=== PATIENT | male | born 1950 | race Hispanic/Latino ===

== ENCOUNTER 2018-10-11 14:14 | Outpatient (CLI) | payer OTHER | END 2018-10-11 14:15 | disposition home or self-care (01) | LOC: ULT 14:14 | PROVIDERS: ATTEND Internal Medicine Hematology & Oncology | DX: Z51.81 Encounter for therapeutic drug level monitoring (principal); I08.3 Combined rheumatic disorders of mitral, aortic and tricuspid valves; I49.1 Atrial premature depolarization; Z79.899 Other long term (current) drug therapy | CPT/HCPCS: 93306 ==

== ENCOUNTER 2018-10-20 13:49 | Day surgery (SDC) | payer SELFPAY ==
[~2018-10-20 13:49] MED LIST: Acetaminophen 500 MG TAB PO SCH; SODIUM CHLORIDE 0.9% IVPB SCH; TRASTUZUMAB IVPB SCH; diphenhydrAMINE 50 MG in Sodium Chloride 0.9% 50 ML IVPB SCH
== END 2018-10-20 16:20 | disposition home or self-care (01) ==
LOC: ONC/OP 13:49
PROVIDERS: ATTEND Internal Medicine Hematology & Oncology
DX: Z51.12 Encounter for antineoplastic immunotherapy (principal); C16.2 Malignant neoplasm of body of stomach
CPT/HCPCS: 96413; J1200; J7050; J9355

== ENCOUNTER 2018-11-09 11:46 | Day surgery (SDC) | payer SELFPAY ==
[~2018-11-09 11:46] MED LIST changes: -Acetaminophen 500 MG TAB PO SCH; -diphenhydrAMINE 50 MG in Sodium Chloride 0.9% 50 ML IVPB SCH
[2018-11-09] MEDS ORDERED: diphenhydrAMINE 50 MG in Sodium Chloride 0.9% 50 ML IVPB SCH (12:15)
[2018-11-09] MEDS ORDERED: Acetaminophen 500 MG TAB PO SCH (13:00)
[2018-11-09] MEDS ORDERED: Sodium Chloride 0.9% 20 ML ONE (13:44)
[2018-11-09 14:43] VITALS: BP 118/58; TEMP 98.4
== END 2018-11-09 15:04 | disposition home or self-care (01) ==
LOC: ONC/OP 11:46
PROVIDERS: ATTEND Internal Medicine Hematology & Oncology
DX: Z51.11 Encounter for antineoplastic chemotherapy (principal); C16.2 Malignant neoplasm of body of stomach
CPT/HCPCS: 96367; 96413; J1200; J1642; J7050; J9355

== ENCOUNTER 2018-12-01 12:31 | Day surgery (SDC) | payer SELFPAY ==
[~2018-12-01 12:31] MED LIST changes: +Acetaminophen 500 MG TAB PO SCH; +diphenhydrAMINE 50 MG in Sodium Chloride 0.9% 50 ML IVPB SCH
[2018-12-01 13:10] VITALS: BP 150/80; TEMP 97.9
[2018-12-01] MEDS ORDERED: Sodium Chloride 0.9% 20 ML ONE (14:06)
== END 2018-12-01 15:32 | disposition home or self-care (01) ==
LOC: ONC/OP 12:31
PROVIDERS: ATTEND Internal Medicine Hematology & Oncology
DX: Z51.11 Encounter for antineoplastic chemotherapy (principal); C16.2 Malignant neoplasm of body of stomach
CPT/HCPCS: 96375; 96413; J1200; J1642; J7050; J9355

== ENCOUNTER 2018-12-21 07:29 | Outpatient (CLI) | payer SELFPAY ==
--- NOTE | 2018-12-21 11:59 | CT ---
EXAM: CT chest, abdomen, and pelvis with IV contrast: HISTORY: Stomach cancer with history of prior surgery. COMPARISON: CT abdomen and pelvis on 07/06/[address] [facility]. FINDINGS: CT THORAX: Lungs: No consolidation, suspicious pulmonary nodule, or mass. Pleura: No pleural effusion. Lymph nodes: No lymphadenopathy. Mediastinum: Prominent calcifications mitral valve annulus are seen. A right subclavian Mediport cath eter is noted in place with tip in the most proximal SVC. Minimal vascular calcifications are seen in the aortic arch. Chest wall: No abnormalities CT ABDOMEN AND PELVIS: Liver: As noted on the prior exam, there are scattered subcentimeter hypodense lesions seen within ea ch lobe of the liver which are too small to accurately characterize. There is a larger lobulated hypodense fluid attenuation structure in the dome of the liver measuring 2.3 cm which does demonstrat e fluid attenuation. The hypodense lesions throughout the liver are statistically most likely related to hepatic cysts. However, cystic metastatic lesion cannot be entirely excluded. Hypodense le sions are stable when compared to prior study. Gallbladder: Postcholecystectomy. Pancreas: Within normal limits. Spleen: Within normal limits. Adrenal glands: Within normal limits. Kidneys: A 2.7 cm fluid attenuation lesion is again seen in the mid left kidney stable from prior louise dy and compatible with a left renal cyst. Kidneys otherwise have a normal CT appearance bilaterally. Urinary Bladder: Partially distended and grossly normal in appearance. Reproductive organs: Within normal limits for patient's age. Bowel: There are postsurgical changes of the stomach related to partial gastrectomy. Loops of small b owel are normal in caliber. Small amount of retained fecal material is seen throughout the colon. Adenopathy:No lymphadenopathy within the abdomen or pelvis. Peritoneum: No free fluid or fluid collection is seen. No free intraperitoneal gas is identified. Butch e fluid seen in the abdomen and pelvis on prior exam has resolved. Abdominal wall: Midline scar is present in the supraumbilical location. Osseous structures: There are prominent Tarlov cysts seen in the central canal of the sacrum. There i s an erosion involving the right posterolateral aspect of the L5 vertebral body which may represent a dilated nerve root sleeve. No lytic or sclerotic osseous lesions are appreciated IMPRESSION: 1. Postsurgical changes of the stomach. 2. Subcentimeter too small to characterize hypodense lesions in each lobe the liver with larger fluid attenuation cystic lesion again seen in the liver stable from prior study. Findings are likely related to multiple hepatic cysts, but cystic metastatic lesions cannot be entirely excluded. Again f indings are unchanged from prior exam. 3. Left renal cyst. 4. CT scan of the abdomen and pelvis is overall stable from prior study.
== END 2018-12-21 07:30 | disposition home or self-care (01) ==
LOC: BICCT 07:29
PROVIDERS: ATTEND Internal Medicine Hematology & Oncology
DX: C16.2 Malignant neoplasm of body of stomach (principal); K76.89 Other specified diseases of liver; N28.1 Cyst of kidney, acquired; Z90.3 Acquired absence of stomach [part of]
CPT/HCPCS: 71260; 74177; 82565

== ENCOUNTER 2018-12-22 14:24 | Day surgery (SDC) | payer SELFPAY ==
[2018-12-22] MEDS ORDERED: Sodium Chloride 0.9% 20 ML ONE (14:39)
[2018-12-22 15:12] VITALS: BP 141/68; TEMP 97.7
== END 2018-12-22 16:23 | disposition home or self-care (01) ==
LOC: ONC/OP 14:24
PROVIDERS: ATTEND Internal Medicine Hematology & Oncology
DX: Z51.12 Encounter for antineoplastic immunotherapy (principal); C16.2 Malignant neoplasm of body of stomach
CPT/HCPCS: 96413; J1200; J1642; J7050; J9355

== ENCOUNTER 2019-01-10 12:23 | Outpatient (CLI) | payer SELFPAY | END 2019-01-10 12:24 | disposition home or self-care (01) | LOC: ULT 12:23 | PROVIDERS: ATTEND Internal Medicine Hematology & Oncology | DX: Z51.11 Encounter for antineoplastic chemotherapy (principal); C16.2 Malignant neoplasm of body of stomach; I08.8 Other rheumatic multiple valve diseases; Z79.899 Other long term (current) drug therapy | CPT/HCPCS: 93306 ==

== ENCOUNTER 2019-01-12 12:21 | Day surgery (SDC) | payer SELFPAY ==
[2019-01-12] MEDS ORDERED: Sodium Chloride 0.9% 20 ML ONE (12:43)
== END 2019-01-12 14:02 | disposition home or self-care (01) ==
LOC: ONC/OP 12:21
PROVIDERS: ATTEND Internal Medicine Hematology & Oncology
DX: Z51.12 Encounter for antineoplastic immunotherapy (principal); C16.2 Malignant neoplasm of body of stomach
CPT/HCPCS: 96375; 96413; J1200; J1642; J7050; J9355

== ENCOUNTER 2019-02-02 13:21 | Day surgery (SDC) | payer SELFPAY ==
[2019-02-02] MEDS ORDERED: Sodium Chloride 0.9% 20 ML ONE (13:44)
[2019-02-02 13:55] VITALS: BP 141/96; TEMP 96
== END 2019-02-02 15:57 | disposition home or self-care (01) ==
LOC: ONC/OP 13:21
PROVIDERS: ATTEND Internal Medicine Hematology & Oncology
DX: Z51.12 Encounter for antineoplastic immunotherapy (principal); C16.2 Malignant neoplasm of body of stomach
CPT/HCPCS: 96367; 96413; J1200; J1642; J7050; J9355

== ENCOUNTER 2019-02-23 13:46 | Day surgery (SDC) | payer OTHER, SELFPAY ==
[~2019-02-23 13:46] MED LIST changes: -diphenhydrAMINE 50 MG in Sodium Chloride 0.9% 50 ML IVPB SCH; +diphenhydrAMINE 50 MG/ML VIAL IVP SCH
== END 2019-02-23 16:07 | disposition home or self-care (01) ==
LOC: ONC/OP 13:46
PROVIDERS: ATTEND Internal Medicine Hematology & Oncology
DX: Z51.12 Encounter for antineoplastic immunotherapy (principal); C16.2 Malignant neoplasm of body of stomach
CPT/HCPCS: 96375; 96413; J1200

== ENCOUNTER 2019-03-17 13:43 | Day surgery (SDC) | payer SELFPAY ==
[~2019-03-17 13:43] MED LIST changes: +Acetaminophen 500 MG TAB PO PRN; -Acetaminophen 500 MG TAB PO SCH
[2019-03-17] MEDS ORDERED: Sodium Chloride 0.9% 20 ML ONE (14:16)
== END 2019-03-17 15:38 | disposition home or self-care (01) ==
LOC: ONC/OP 13:43
PROVIDERS: ATTEND Internal Medicine Hematology & Oncology
DX: Z51.12 Encounter for antineoplastic immunotherapy (principal); C16.2 Malignant neoplasm of body of stomach
CPT/HCPCS: 96375; 96413; J1200; J1642; J7050; J9355

== ENCOUNTER 2019-04-05 12:04 | Day surgery (SDC) | payer SELFPAY ==
[~2019-04-05 12:04] MED LIST changes: -Acetaminophen 500 MG TAB PO PRN; +Acetaminophen 500 MG TAB PO SCH; +diphenhydrAMINE 50 MG in Sodium Chloride 0.9% 50 ML IVPB SCH; -diphenhydrAMINE 50 MG/ML VIAL IVP SCH
[2019-04-05] MEDS ORDERED: Sodium Chloride 0.9% 20 ML ONE (12:15)
[2019-04-05 12:29] VITALS: BP 138/79; TEMP 97.7
== END 2019-04-05 15:42 | disposition home or self-care (01) ==
LOC: ONC/OP 12:04
PROVIDERS: ATTEND Internal Medicine Hematology & Oncology
DX: Z51.12 Encounter for antineoplastic immunotherapy (principal); C16.2 Malignant neoplasm of body of stomach
CPT/HCPCS: 96375; 96413; J1200; J1642; J7050; J9355

== ENCOUNTER 2019-06-28 07:38 | Outpatient (CLI) | payer OTHER ==
--- NOTE | 2019-06-28 09:13 | CT ---
CHEST AND ABDOMEN AND PELVIC CT SCAN WITH IV CONTRAST: HISTORY: Gastric cancer. COMPARISON: 12/21/2018. FINDINGS: Multiple circumscribed hypodense foci within the liver, statistically cysts, stable. No evidence for solid enhancing liver mass. Postop changes involving the stomach with a possible small hiatal herni a. Status post cholecystectomy. Pancreas, spleen, and adrenal glands are unremarkable. Left renal cysts. No renal calculus or acute obstruction. No evidence for adenopathy within the abdomen or pelvis. No abnormal fluid collection. Multiple right and left stable Tarlov cysts at S1 and S2. Gr evelyn I anterolisthesis of L4 and L5 with associated stenosis, stable. IMPRESSION: Stable findings as above. No evidence for new metastasis. No other significant acute process. POS: MARIALUISA
[2019-06-28] MEDS ORDERED: Iopamidol-370 76% 500 ML 1 ML ONE (14:35)
== END 2019-06-28 07:39 | disposition home or self-care (01) ==
LOC: BICCT 07:38
PROVIDERS: ATTEND Internal Medicine Hematology & Oncology
DX: C16.2 Malignant neoplasm of body of stomach (principal)
CPT/HCPCS: 71260; 74177; 82565; Q9967

== ENCOUNTER 2019-08-17 14:28 | Emergency (ER) | payer OTHER ==
[2019-08-17] MEDS ORDERED: Bupivacaine 0.5% 10 ML VIAL ONE (15:07)
--- NOTE | 2019-08-17 15:39 | RAD ---
RIGHT HAND THREE VIEWS: 08/17/19 INDICATION: Laceration to the right hand. COMPARISON: None. FINDINGS: There is a distal phalangeal fracture involving the thumb distal phalanx with soft tissue injury. No additional acute fracture is evident. 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 IMPRESSION: Distal phalangeal fracture with soft tissue laceration of the right thumb. POS: BH
== END 2019-08-17 16:45 | disposition home or self-care (01) ==
LOC: ERS 14:28
DX: S68.021A Partial traumatic metacarpophalangeal amputation of right thumb, initial encounter (principal); X58.XXXA Exposure to other specified factors, initial encounter
CPT/HCPCS: 12002; J3490

== ENCOUNTER 2020-07-05 07:03 | Outpatient (CLI) | payer OTHER ==
--- NOTE | 2020-07-05 08:41 | CT ---
EXAM: CT Chest Abd Pelvis W Con PROVIDED CLINICAL HISTORY: Gastric cancer COMPARISON: 07/27/2019 FINDINGS: The heart, pericardium and great vessels demonstrate a stable CT appearance. Vascular calcification i ncluding coronary calcium is redemonstrated. There is no evidence for thoracic lymph node enlargement. Prominent by number but not pathologically enlarged left axillary lymph nodes are again seen. The lungs are free of significant opacity. The airway appears patent and of normal caliber. There is no evidence for pleural fluid or pneumothorax. Multiple hepatic and renal hypodensities are redemonstrated, stable and compatible with cysts. The so lid abdominal organs demonstrate an otherwise unremarkable CT appearance. Postoperative changes involving the stomach are redemonstrated. There is no bowel dilatation, inflamm atory fat stranding, free fluid or lymph node enlargement within the abdomen. Changes of prior cholecystectomy are seen. The osseous structures demonstrate no concerning lytic or blastic lesions. IMPRESSION: No significant interval change.
[2020-07-05] MEDS ORDERED: Iopamidol-370 76% 500 ML 1 ML ONE (11:45)
== END 2020-07-05 07:04 | disposition home or self-care (01) ==
LOC: BICCT 07:03
PROVIDERS: ATTEND Internal Medicine Hematology & Oncology
DX: C16.2 Malignant neoplasm of body of stomach (principal); D50.0 Iron deficiency anemia secondary to blood loss (chronic)
CPT/HCPCS: 71260; 74177; 82565; Q9967

== ENCOUNTER 2022-04-16 12:36 | Outpatient (CLI) | payer BC | END 2022-04-16 12:37 | disposition home or self-care (01) | LOC: ULT 12:36 | PROVIDERS: ATTEND Student in an Organized Health Care Education/Training Program | DX: I35.0 Nonrheumatic aortic (valve) stenosis (principal) | CPT/HCPCS: 93306 ==

== ENCOUNTER 2022-08-11 17:52 | Emergency (ER) | payer BC ==
[2022-08-11 19:07] LABS: #Eosinphils 0.2 thou/uL (0.0-0.7); #Lymphocytes 1.4 thou/uL (1.20-3.40); #Monocytes 0.8 thou/uL (0.11-0.59); #Neutrophils 6.8 thou/uL (1.40-6.50); %Basophils 0.4 % (0.0-1.0); %Eosinophils 2.3 % (0.0-10.0); %Lymphocytes 15.4 % (21.0-51.0); %Monocytes 8.6 % (0.0-10.0); %Neutrophils 73.3 % (42.0-75.0); Hemoglobin 14.8 g/dL (14.0-18.0); Mean Corpuscular HGB CONC 34.8 g/dL (32.0-36.0); Mean Platelet Volume 7.9 fL (7.4-10.4); Platelet Count 197 10x3/uL (130-400); RBC Distribution Width 11.3 % (11.5-14.5); Red Blood Cell (RBC) Count 4.49 mill/uL (4.70-6.10); White Blood Cell (WBC) Count 9.2 10x3/uL (4.8-10.8)
[2022-08-11 19:29] LABS: ALT (SGPT) 13 U/L (8-55); AST (SGOT) 24 U/L (5-34); Albumin 4.3 g/dL (3.4-4.8); Alkaline Phosphatase 65 U/L (40-110); Anion Gap 11 mmol/L (10-20); BUN (Urea Nitrogen) 23 mg/dL (8.4-25.7); Bilirubin, Total 0.4 mg/dL (0.2-1.2); Calc. Creatinine Clearance 0 mL/min (70-130); Calcium 9.3 mg/dL (7.8-10.44); Carbon Dioxide 24 mmol/L (23-31); Chloride 106 mmol/L (98-107); Estimated GFR 69; Glucose 96 mg/dL (83-110); Lipase 52 U/L (8-78); Potassium 4.4 mmol/L (3.5-5.1); Protein, Total 7.3 g/dL (5.8-8.1); Sodium 137 mmol/L (136-145)
[2022-08-11] MEDS ORDERED: Acetaminophen 500 MG TAB ONE ×2 (20:22)
[2022-08-11] MEDS ORDERED: Aspirin Chewable 81 MG TAB ONE (20:22)
[2022-08-11] MEDS ORDERED: Nitroglycerin 2% Ointment 1 INCH/1 GM Packet ONE (20:23)
[2022-08-11 20:54] LABS: Troponin I 0.011 ng/mL (< 0.028)
== END 2022-08-11 21:24 | disposition home or self-care (01) ==
LOC: ERS 17:52
DX: R07.89 Other chest pain (principal)
CPT/HCPCS: 36415; 71045; 80053; 83690; 84484; 85025; 85379; 93005; 94760